=== PATIENT | male | born 1980 | race Caucasian/White ===

== ENCOUNTER 2023-02-28 17:09 | Emergency (ER) | payer OTHER ==
[~2023-02-28] VITALS: Ht 172.7 cm; Wt 82.0 kg
[2023-02-28 17:24] VITALS: BP 139/94; PULSE 98; RESP 16; TEMP 98.2; O2SAT 98
[2023-03-02] MEDS ORDERED: NAPR-679 MT (16:47)
[2023-03-02] MEDS ORDERED: LIDO700A15 TP (16:47)
== END 2023-02-28 20:06 | disposition left against medical advice (07) ==
LOC: ER 17:09
DX: Z53.21 Procedure and treatment not carried out due to patient leaving prior to being seen by health care provider (principal)
CPT/HCPCS: 99281